=== PATIENT | male | born 1955 | race Caucasian/White ===

== ENCOUNTER 2025-01-21 07:33 | Outpatient (CLI) | payer MEDICARE, OTHER ==
[2025-01-21 08:19] LABS: CREATININE 0.64 MG/DL (0.60-1.10); TOTAL CARBON DIOXIDE 26.4 MMOL/L (24-32); eGFR > 90 ML/MIN
--- NOTE | 2025-01-21 13:34 | RADIOLOGY REPORT ---
Procedure: MR MRA ABDOMEN History: MALIGNANT NEOPLASM OF PROSTATE Comparison Study: None Exam Date: 01/21/2025 08:39 AM TECHNIQUE: Sequences include multiplanar HASTE, dynamic time resolved contrast MRA, high spatial resolution 3D MRA 1st and 2nd pass, and post contrast VIBE of abdomen was obtained. images were obtained without and with intravenous contrast. 3D Post processing, including maximum intensity projection, was performed. Multiphasic imaging was performed. FINDINGS: Abdominal Aorta: Normal caliber without mural thickening, irregularity, aneurysm or dissection. Bilateral proximal common iliac arteries are patent without focal stenosis. Celiac axis: Patent without stenosis, aneurysm or dissection. SMA: Patent without stenosis, aneurysm or dissection. LESLIE: Patent without stenosis, aneurysm or dissection. Right Renal artery: Unremarkable Left Renal artery: Unremarkable Major Abdominal Veins (including portal vein, splenic vein and renal veins): Grossly patent OTHER FINDINGS: Time resolved MRA shows normal symmetric contrast arrival in both main renal arteries and simultaneous dynamic contrast perfusion of bilateral kidneys without any focal perfusion defect. Liver: The liver is normal in size without focal lesions. Normal liver contour. Subcentimeter left hepatic dome cyst is present. Spleen: Unremarkable. Pancreas: The pancreas is normal in appearance without focal lesions. Gallbladder and ducts: Cholelithiasis noted without secondary findings of cholecystitis or biliary obstruction. The cystic duct, right and left hepatic ducts, common hepatic duct, and common bile ducts are unremarkable. The pancreatic duct is within normal limits. Adrenal glands: Unremarkable. Kidneys: Normal enhancement without suspicious lesions or hydronephrosis. Bilateral renal cysts. Visualized bowel: Left lower quadrant ostomy. Vasculature: Unremarkable. Lymphadenopathy: No evidence for lymphadenopathy. Ascites: Absent. Musculoskeletal: Bone marrow signal is normal. IMPRESSION: No evidence of abdominal aortic aneurysm or dissection. No evidence of renal artery stenosis. Cholelithiasis without secondary findings of cholecystitis or biliary obstruction. Left lower quadrant ostomy.
--- NOTE | 2025-01-21 14:02 | RADIOLOGY REPORT ---
CLINICAL HISTORY: Malignant neoplasm of prostate. TECHNIQUE: Multi sequence multi planar MRI images of the thoracic spine were obtained prior to and after the uneventful administration of 15 mL Clariscan contrast. COMPARISON: None available at the time of dictation. FINDINGS: T2 hyperintense, T1 hypointense, enhancing lesions involving most of the T8 vertebral body and at the anterior aspect of the T9 vertebral body and smaller focus at the superior endplate of the T9 vertebral body, suspected metastatic disease. Vertebral body alignment is within normal limits. Vertebral body heights are maintained. Posterior elements appear intact. No evidence of acute fracture. Spinal cord is normal in signal intensity and morphology. No abnormal epidural or leptomeningeal enhancement demonstrated. Multilevel disc desiccation in the thoracic spine minimal disc bulge at T8-T9 mildly indenting the ventral aspect of the thecal sac. 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 Multilevel facet hypertrophy with multilevel areas of [id number] neural foraminal stenosis. Paraspinal soft tissues are unremarkable. IMPRESSION: 1. Enhancing lesions at the T8 and T9 vertebral bodies as described above, consistent with metastatic disease in the setting of known prostate malignancy. 2. No evidence of acute fracture or spondylolisthesis. 3. Additional findings as detailed above.
[2025-01-21] MEDS ORDERED: GADOTERATE MEGLUMINE 7.5 MMOL/15 ML VIAL IV ONE (17:31)
== END 2025-01-21 23:59 | disposition home or self-care (01) ==
LOC: MRI 07:33
PROVIDERS: ATTEND Student in an Organized Health Care Education/Training Program
DX: C61 Malignant neoplasm of prostate (principal); K80.20 Calculus of gallbladder without cholecystitis without obstruction; N28.1 Cyst of kidney, acquired; K76.89 Other specified diseases of liver; M48.04 Spinal stenosis, thoracic region; G95.9 Disease of spinal cord, unspecified
CPT/HCPCS: 36415; 72157; 74183; 80053; A9575